=== PATIENT | male | born 1975 | race Caucasian/White ===

== ENCOUNTER 2023-06-16 04:03 | Emergency (ER) | payer BC ==
[~2023-06-16] VITALS: Ht 177.8 cm; Wt 90.7 kg
[2023-06-16] MEDS ORDERED: TDAP [DIPH/PERTUSSIS/TET] 0.5 ML VIAL IM ONE (05:01)
[2023-06-16] MEDS: TDAP [DIPH/PERTUSSIS/TET] 0.5 ML VIAL IM ONE (05:02)
[2023-06-16 05:52] VITALS: BP 138/85; TEMP 98.3; O2SAT 99
== END 2023-06-16 05:52 | disposition home or self-care (01) ==
LOC: ER 04:19
DX: S61.211A Laceration without foreign body of left index finger without damage to nail, initial encounter (principal); W45.8XXA Other foreign body or object entering through skin, initial encounter; Y93.89 Activity, other specified; Y92.89 Other specified places as the place of occurrence of the external cause; Y99.8 Other external cause status
CPT/HCPCS: 90715